=== PATIENT | male | born 1935 | race Caucasian/White ===

== ENCOUNTER 2016-07-27 20:33 | Emergency (ER) | payer MEDICARE, OTHER ==
--- NOTE | 2016-07-27 21:27 | ER PHYSICIAN DOCUMENTATION ---
Physician Documentation [facility] Name:Sachin Baig Age:80 yrs Sex:Male :1935 Arrival Date:07/27/2016 Time:20:33 Bed2 Private MD:Physician, No ED Og Leblanc Disposition: 07/27/16 21:01 Discharged to Home/Self Care. Impression: Broken Tooth, Closed Fracture. - Condition is Good. - Discharge Instructions: FRACTURE Tooth - DENTAL TRAUMA. - Medical Reconciliation form form. - Follow up: Private Physician; When: 4- 6 days; Reason: Continuance of care. - Problem is an acute exacerbation. - Symptoms are unchanged. HPI: 07/27 20:51 This 80 yrs old Male presents to ER via Walk In with complaints of Dental sc Injury. 20:51 The patient presents with broken tooth/teeth. The problem is located in the left buccal sc mucosa. Onset: The symptom(s)/episode began/occurred just prior to arrival. Duration: The symptoms are continuous. Modifying factors: the symptoms are aggravated by nothing. Associated signs and symptoms: The patient has no apparent associated signs or symptoms. Historical: - Allergies: SULFA (SULFONAMIDES); high chol; - Home Meds: 1. atorvastatin oral 2. aspirin 81 mg oral tab 3. bisoprolol fumarate oral 4. Omeprazole Oral 5. Valacyclovir Oral 6. calcitriol oral 7. l thyroxine - PMHx: Hypertension; HIGH CHOLESTEROL; - PSHx: cardiac; - Tetanus: < 10 years. - Ebola Screening: : Patient denies exposure to infectious person. Patient denies travel to an Ebola-affected area in the 21 days before illness onset. . - Immunization history: Pneumococcal vaccine is up to date, Flu Vaccine < 1 year. - Social history: Smoking status: Patient states former smoker of tobacco. Patient uses alcohol on a daily basis. ROS: 20:51 Constitutional: Negative for fever, chills, and weight loss. sc Eyes: Negative for injury, pain, redness, and discharge. Neck: Negative for injury, pain, and swelling. Cardiovascular: Negative for chest pain, palpitations, and edema. Respiratory: Negative for shortness of breath, cough, wheezing, and pleuritic chest pain. Abdomen/GI: Negative for abdominal pain, nausea, vomiting, diarrhea, and constipation. Skin: Negative for injury, rash, and discoloration. 20:51 Neuro: Negative for headache, weakness, numbness, tingling, and seizure. sc 20:51 ENT: Positive for dental pain. Exam: Constitutional: This is a well developed, well nourished patient who is awake, alert, and in no acute distress. Head/Face: Normocephalic, atraumatic. Eyes: Pupils equal round and reactive to light, extra-ocular motions intact. Lids and lashes normal. Conjunctiva and sclera are non-icteric and not injected. Cornea within normal limits. Periorbital areas with no swelling, redness, or edema. Cardiovascular: Regular rate and rhythm with a normal S1 and S2. No gallops, murmurs, or rubs. Normal PMI, no JVD. No pulse deficits. Respiratory: Lungs have equal breath sounds bilaterally, clear to auscultation and percussion. No rales, rhonchi or wheezes noted. No increased work of breathing, no retractions or nasal flaring. 20:51 Skin: Warm, dry with normal turgor. Normal color with no rashes, no lesions, and no sc evidence of cellulitis. 20:51 ENT: Mouth: no acute changes, Dental exam: dental caries, fractured teeth are noted. Vital Signs: 20:44 BP 154 / 77 LA Sitting (auto/reg); Pulse 60 RA; Resp 20 S; Temp 98.4(O); Pulse Ox 82% em3 on 4 lpm NC; Weight 85.28 kg (R); Height 5 ft. 10 in. (177.80 cm) (R); Pain 0/10; 20:44 Body Mass Index 26.97 (85.28 kg, 177.80 cm) em3 MDM: 20:35 Patient medically screened. sc 20:52 Differential diagnosis: dental caries, dental abscess, pericoronitis, due to radiation sc and chemo for ent cancer fragile teeth. Data reviewed: vital signs, nurses notes, and as a result, I will discharge patient. ED course: Has amoxicillin filled this morning but hadn't started yet. Wanted checked prior to starting.. Dispensed Medications: No medications were administered Signatures: Og Kennedy MD MD sc Bollock, Lynda lb
--- NOTE | 2016-07-27 21:27 | ER NURSING DOCUMENTATION ---
Nurse's Notes [facility] Name:Sachin Baig Age:80 yrs Sex:Male :1935 Arrival Date:07/27/2016 Time:20:33 Bed2 Private MD:Nara Galloway Diagnosis:Broken Tooth, Closed Fracture Presentation: 07/27 20:44 Presenting complaint: Patient states: tooth fell out, another cracked. pt concerned re lb infection. Transition of care: Home. Notified ED Physician of Dr. Kennedy notified. 20:44 Acuity: STAS 4 lb 20:44 Method Of Arrival: Walk In lb Triage Assessment: 20:49 General: Appears in no apparent distress, Behavior is appropriate for age, pleasant. lb Pain: Denies pain. Historical: - Allergies: SULFA (SULFONAMIDES); high chol; - Home Meds: 1. atorvastatin oral 2. aspirin 81 mg oral tab 3. bisoprolol fumarate oral 4. Omeprazole Oral 5. Valacyclovir Oral 6. calcitriol oral 7. l thyroxine - PMHx: Hypertension; HIGH CHOLESTEROL; - PSHx: cardiac; - Tetanus: < 10 years. - Ebola Screening: : Patient denies exposure to infectious person. Patient denies travel to an Ebola-affected area in the 21 days before illness onset. . - Immunization history: Pneumococcal vaccine is up to date, Flu Vaccine < 1 year. - Social history: Smoking status: Patient states former smoker of tobacco. Patient uses alcohol on a daily basis. Screenin:49 Infectious Disease Risk None. Abuse screen: Denies threats or abuse. Denies injuries lb from another. Nutritional screening: No deficits noted. Assessment: 20:49 See Triage Assessment done by same RN. lb Vital Signs: 20:44 BP 154 / 77 LA Sitting (auto/reg); Pulse 60 RA; Resp 20 S; Temp 98.4(O); Pulse Ox 82% em3 on 4 lpm NC; Weight 85.28 kg (R); Height 5 ft. 10 in. (177.80 cm) (R); Pain 0/10; 20:44 Body Mass Index 26.97 (85.28 kg, 177.80 cm) em3 ED Course: 20:34 Patient arrived in ED. ma1 20:34 Physician, No is Private Physician. ma1 20:35 Og Kennedy MD is Attending Physician. sc 20:43 Roxanne Burciaga is Primary Nurse. lb 20:44 Triage completed. lb 20:45 Valuables Remains with patient Patient has correct armband on for positive em3 identification. Bed in low position. Call light in reach. Administered Medications: No medications were administered Outcome: 21:01 Discharge ordered by . pa 21:26 Discharged to home ambulatory. lb 21:26 Condition: good 21:26 Discharge Assessment: Patient awake, alert and oriented x 3. No cognitive and/or functional deficits noted. Patient verbalized understanding of disposition instructions. 21:26 Instructed on discharge instructions, follow up and referral plans. pt left without written d/c insetructions 21:27 Patient left the ED. 07/29 09:25 Discharge F/U Call: Unable to reach: no answer st Signatures: Yeimi Gallegos, RN RN Og Luciano MD MD pa Elle, Edgar em3 Roxanne Burciaga Jose A, Kenya ma1
== END 2016-07-27 21:27 | disposition home or self-care (01) ==
LOC: ER 20:33
DX: K03.81 Cracked tooth (principal); K02.9 Dental caries, unspecified; K08.89 Other specified disorders of teeth and supporting structures; I10 Essential (primary) hypertension; Z79.899 Other long term (current) drug therapy
CPT/HCPCS: 99281; 99282